=== PATIENT | female | born 1965 | race Caucasian/White ===

== ENCOUNTER → 2019-05-26 | Outpatient (CLI) | payer BC ==
[~2019-05-26] MED LIST: CATHETER FLUSH 10 ML SYR IV PRN; HOLD METFORMIN - RECEIVED CONTRAST 20 ML VIAL IV SCH; IOHEXOL 350 MG/ML 100 ML (OMNIPAQUE 350) VIAL IV ONE; NS 100 ML (IVPB) BAG IV ONE; RT-ALBUTEROL SULF 2.5 MG/3 ML PRE-MIX VIAL INH ONE; RT-ALBUTEROL SULF 2.5 MG/3 ML PRE-MIX VIAL ONE
[2019-05-26 10:55] LABS: BUN/CREATININE RATIO 20; CREATININE SERUM 0.64 MG/DL (0.60-1.30); GFR ESTIMATED > 60
--- NOTE | 2019-05-26 12:33 | Diagnostic Imaging Report ---
PROCEDURE: CT chest with contrast only. TECHNIQUE: Multiple contiguous axial images were obtained through the chest after administration of intravenous contrast. Auto Exposure Controls were utilized during the CT exam to meet ALARA standards for radiation dose reduction. INDICATION: Hypoxemia. COMPARISON: There are no prior CT chest examinations available for comparison. FINDINGS: The plain film examination of the chest performed on 03/31/2019 noted discoid atelectasis in each lung base. On this study there is again evidence of chronic atelectasis/scar formation involving the lingula and right lower lobe. These findings seem similar to the prior exam. There is no evidence for pneumonia, failure, or for a pleural effusion to indicate an acute abnormality. The heart is enlarged and there are coronary artery calcifications evident. There is no defect within the pulmonary arteries to indicate a pulmonary embolus. The main pulmonary artery does seem prominent, however. The aorta is not abnormally dilated and there is no sign of a dissection. There is no mediastinal or hilar adenopathy identified. The left lobe of the thyroid is prominent and there is a 1.2 x 1.3 cm low-density nodule in the left lobe. Ultrasound would be recommended to better characterize this finding. The breasts, where visualized are unremarkable. There are a few lymph nodes in each axilla but these do not seem to be enlarged. According to our records the patient has not had a mammogram. If the patient has had a recent (within the last year) mammogram elsewhere, then no further imaging would be recommended. However, if the patient has not had a recent mammogram, then mammography should be performed. The sections to the upper abdomen show that the liver is of lower density than usually seen. This does suggest fatty metamorphosis. There is also a single 7 mm gallstone within the gallbladder. There is no evidence for acute cholecystitis however. There is a 4.2 x 4.7 cm hiatal hernia. The bone windows show no sign of a fracture or of a destructive lesion. IMPRESSION: 1. There is chronic atelectasis/scar formation involving the lingula and the right lower lobe. There is no acute cardiopulmonary abnormality identified. 2. The heart is enlarged and there are coronary artery calcifications evident. The main pulmonary artery is also prominent. 3. An ultrasound would be recommend for further evaluation of the nodule in the left lobe of the thyroid. 4. There is no obvious breast mass. Recommendations as above. 5. There is cholelithiasis without evidence for acute cholecystitis. Dictated by: Dictated on workstation # [id number]
== END ==
LOC: RAD 10:21
PROVIDERS: ATTEND Nurse Practitioner Family
DX: I25.10 Atherosclerotic heart disease of native coronary artery without angina pectoris (principal); I51.7 Cardiomegaly; E04.1 Nontoxic single thyroid nodule; K80.20 Calculus of gallbladder without cholecystitis without obstruction; J18.8 Other pneumonia, unspecified organism; J30.9 Allergic rhinitis, unspecified
CPT/HCPCS: 36415; 71260; 82565; 84520

== ENCOUNTER → 2022-10-04 | Outpatient (CLI) | payer BC ==
[~2022-10-04] VITALS: Ht 152.4 cm; Wt 96.4 kg
[~2022-10-04] MED LIST changes: -CATHETER FLUSH 10 ML SYR IV PRN; -HOLD METFORMIN - RECEIVED CONTRAST 20 ML VIAL IV SCH; -IOHEXOL 350 MG/ML 100 ML (OMNIPAQUE 350) VIAL IV ONE; +LIDOCAINE 1% INJ 30 ML (XYLOCAINE) VIAL INJ ONE; -NS 100 ML (IVPB) BAG IV ONE; -RT-ALBUTEROL SULF 2.5 MG/3 ML PRE-MIX VIAL INH ONE; -RT-ALBUTEROL SULF 2.5 MG/3 ML PRE-MIX VIAL ONE
--- NOTE | 2022-10-04 13:29 | Diagnostic Imaging Report ---
INDICATION: Left lobe thyroid nodule. Patient presents for ultrasound-guided fine needle aspiration. Patient brought to the procedure room and placed on the table in the supine position. Ultrasound imaging of the left neck was performed to evaluate appropriate entry site. Left neck was then prepped and draped in usual sterile fashion. Small amount of 1% lidocaine was utilized for local anesthesia. Total of 4 passes were made into the dominant solid nodule left lobe of thyroid utilizing 25-gauge needles and fine-needle aspiration technique. Hemostasis was obtained. Patient tolerated the procedure well and left the department in stable condition. IMPRESSION: Successful ultrasound-guided fine-needle aspiration of the dominant solid nodule left lobe of thyroid. Pathology results are currently pending. Dictated by: Dictated on workstation # [id number]
--- NOTE | 2022-10-04 13:29 | Diagnostic Imaging Report ---
INDICATION: Right lobe thyroid nodule. Patient presents for ultrasound-guided fine-needle aspiration. Patient was brought to the procedure room and placed on table in the supine position. Ultrasound imaging of the right neck was performed to evaluate appropriate entry site. Right neck was then prepped and draped in the usual sterile fashion. A small amount of 1% lidocaine was utilized for local anesthesia. A total of four passes were made into the area of mass-like heterogeneity in the mid to upper portion of the right lobe of the thyroid utilizing 25-gauge needles and fine-needle aspiration technique. A single pass was made with a Rotex needle, and Rotex biopsy was performed. The needle was removed, and hemostasis was obtained. Patient tolerated the procedure well. IMPRESSION: Successful ultrasound-guided fine-needle aspiration and Rotex biopsy of right lobe thyroid nodule. Pathology results are currently pending. Dictated by: Dictated on workstation # [id number]
== END ==
LOC: RAD 11:15
PROVIDERS: ATTEND Otolaryngology Otolaryngology/Facial Plastic Surgery
DX: E04.2 Nontoxic multinodular goiter (principal)
CPT/HCPCS: 10005; 10006